=== PATIENT | male | born 1960 | race Caucasian/White ===

== ENCOUNTER 2019-02-08 06:12 | Day surgery (SDC) | payer OTHER ==
[~2019-02-08] VITALS: Ht 188 cm; Wt 102.0 kg
[2019-02-08 06:28] VITALS: BP 151/100; PULSE 68; TEMP 98
[2019-02-08] MEDS ORDERED: VIAGRA100 M1 PO (06:50)
[2019-02-08] MEDS ORDERED: ALDACTONE 25MG25 M1 PO (06:52)
[2019-02-08] MEDS ORDERED: OMEGA-3 1000 MG1 CAP PO (06:52)
[2019-02-08] MEDS ORDERED: COREG 25MG25 MG/TAB PO (06:55)
[2019-02-08] MEDS ORDERED: GLUCOPHAGE1000 MG PO (06:59)
[2019-02-08 07:35] VITALS: BP 117/84; PULSE 66; TEMP 97.7
--- NOTE | 2019-02-08 07:35 | NUR ---
Patient brought back to bay [facility]. Alert and oriented, ambulated to chair without difficulty. Vital signs stable. States he would like a apple juice and apple sauce tolerating well. Denies pain or nausea at this time. Mala at bedside. Call ramos within reach, will continue to monitor.
[2019-02-08 07:50] VITALS: BP 109/84; PULSE 60
[2019-02-08 08:05] VITALS: BP 122/88; PULSE 60
--- NOTE | 2019-02-08 08:05 | NUR ---
Discharge instructions reviewed with patient and . All questions answered. Vital signs stable. Patient states he would like to go home at this time. IV removed per orders, tolerated. Patient to get dressed at this time.
--- NOTE | 2019-02-08 08:15 | NUR ---
Patient brought down to lobby via wheel chair. To be driven home by Mala.
== END 2019-02-08 08:29 | disposition home or self-care (01) ==
LOC: SDCO 06:12
DX: Z12.11 Encounter for screening for malignant neoplasm of colon (principal); K64.1 Second degree hemorrhoids; I42.0 Dilated cardiomyopathy; D69.49 Other primary thrombocytopenia; R00.1 Bradycardia, unspecified; Z79.899 Other long term (current) drug therapy; Z95.810 Presence of automatic (implantable) cardiac defibrillator; Z88.5 Allergy status to narcotic agent; G47.33 Obstructive sleep apnea (adult) (pediatric); I10 Essential (primary) hypertension; Z87.891 Personal history of nicotine dependence; Z96.9 Presence of functional implant, unspecified
CPT/HCPCS: J2704; J7030

== ENCOUNTER 2021-05-17 13:27 | Emergency (ER) | payer OTHER ==
[~2021-05-17] VITALS: Ht 188 cm; Wt 100.5 kg
[~2021-05-17 13:27] MED LIST: ALDACTONE 25MG25 M1 PO; COREG 25MG25 MG/TAB PO; GLUCOPHAGE1000 MG PO; OMEGA-3 1000 MG1 CAP PO; VIAGRA100 M1 PO
[2021-05-17 13:38] VITALS: BP 130/91; TEMP 98.9
[2021-05-17 14:22] VITALS: PULSE 83
== END 2021-05-17 14:23 | disposition left against medical advice (07) ==
LOC: COL.ER 13:27
DX: R10.2 Pelvic and perineal pain (principal)

== ENCOUNTER → 2024-03-06 | Outpatient (CLI) | payer OTHER, MEDICARE ==
[~2024-03-06] MED LIST changes: +ASPIRIN 81M81 MG/TA2 PO; +BASAGLAR K100 UNIT/1 SQ; +CEFTIN500 MG PO; +DICLOFENAC SOD2.5 ML TOP; +DOXYCYCLINE 10100 MG PO; +ENTRESTO 24 MG1 EACH PO; +JARDIANCE10 PO; +LIPITOR 40MG TA40 MG PO; +MELATIN 3 MG-11 TAB PO; +PRILOSEC 20MG20 MG PO; +THE MEDICINE S200 M2 PO; +TYLENOL 500MG500 MG PO
== END ==
LOC: COL.RAD 07:13
DX: Z01.89 Encounter for other specified special examinations (principal); K80.20 Calculus of gallbladder without cholecystitis without obstruction; K57.90 Diverticulosis of intestine, part unspecified, without perforation or abscess without bleeding; N20.0 Calculus of kidney; D69.6 Thrombocytopenia, unspecified

== ENCOUNTER 2024-04-10 07:59 | Inpatient (IN) | payer OTHER ==
[2024-04-10] VITALS (8 sets, daily range): BP systolic 95–121; BP diastolic 64–89; PULSE 93–122; TEMP 97.5–98.3
[~2024-04-10] VITALS: Ht 188 cm; Wt 95.5 kg
[2024-04-10] MEDS ORDERED: Albuterol/Ipratropium 3 MG-0.5 MG/3 ML Neb Soln IH ONE (08:30)
[2024-04-10] MEDS ORDERED: Furosemide 40 MG/4 ML VIAL IV ONE ×2 (08:30→11:00)
[2024-04-10 08:41] LABS: BASO # 0.1 K/mm3 (0.0-0.2); EOS # 0.1 K/mm3 (0.0-0.7); EOS % 2.1 % (0.0-4.0); GRAN # 3.6 K/mm3 (1.4-6.5); GRAN % 57.7 % (42.2-75.2); HEMATOCRIT 48.6 % (42.0-52.0); HEMOGLOBIN 15.5 g/dl (13.5-18.0); LYMPH # 1.9 K/mm3 (1.2-3.4); LYMPH % 30.4 % (20.0-51.0); MEAN CELL VOLUME 84 fl (80.0-100.0); MEAN CORPUSCULAR HEMOGLOBIN 27 pg (27-31); MEAN CORPUSCULAR HGB CONC 32 g/dl (33.0-37.0); MEAN PLATELET VOLUME 12.8 fl (7.4-10.4); MONO # 0.5 K/mm3 (0.1-0.6); MONO % 8.3 % (1.7-9.3); PLATELET COUNT 176 K/mm3 (130-400); RED BLOOD COUNT 5.82 M/mm3 (4.20-5.60); REDCELL DISTRIBUTION WIDTH-CV 16.7 % (11.5-14.5)
[2024-04-10 09:02] LABS: INR 1.5 (0.8-3.0); PROTHROMBIN TIME 16.4 SECONDS (9.7-12.8)
[2024-04-10 09:11] LABS: ALBUMIN 3.7 g/dL (3.4-4.8); BILIRUBIN,TOTAL 2.3 mg/dL (0.2-1.2); C-REACTIVE PROTEIN 1.43 mg/dL (0.00-0.50); CALCIUM 9.6 mg/dL (8.4-10.2); CREATININE, serum 1.82 mg/dL (0.72-1.25); POTASSIUM 4.2 mEq/L (3.5-4.5); TOTAL PROTEIN 6.9 g/dl (6.2-8.1)
[2024-04-10 09:20] LABS: TROPONIN-I 0.131 ng/mL (0.00-0.033)
[2024-04-10] MEDS ORDERED: ENTRESTO 49 MG1 EACH PO (09:51)
[2024-04-10] MEDS ORDERED: TOPROL XL 25MG25 MG PO (09:53)
[2024-04-10] MEDS ORDERED: INSPRA25 MG PO (09:53)
[2024-04-10] MEDS ORDERED: PROAIR HFA0.09 MG/AC IH (09:54)
[2024-04-10] MEDS ORDERED: ZYRTEC 10MG10 MG PO (09:54)
[2024-04-10] MEDS ORDERED: LASIX 40MG TABL40 MG PO (09:54)
--- NOTE | 2024-04-10 10:34 | NUR ---
Patient arriued to the medical unit, room 317, alert and orinted x4, with some cough while speaking. Not productive. Assessment intake completed.
[2024-04-10] MEDS ORDERED: Ondansetron 4 MG/2 ML VIAL IV PRN (11:15)
[2024-04-10] MEDS ORDERED: Polyethylene Glycol 3350 17 GM PDS PO PRN (11:15)
[2024-04-10] MEDS ORDERED: Acetaminophen 500 MG TAB PO PRN (11:15)
[2024-04-10] MEDS ORDERED: Dextrose 50% Water 25 GM/50 ML SYRINGE IV PRN (11:30)
[2024-04-10] MEDS ORDERED: Glucagon 1 MG VIAL IM PRN (11:30)
[2024-04-10] MEDS ORDERED: Dextrose (Glucose) 15 GM (4 x 3.75 GM) Chewable TABLET PACK PO PRN (11:30)
[2024-04-10] MEDS ORDERED: Albuterol 0.042% Neb Soln 1.25 MG/3 ML UD IH PRN (11:45)
[2024-04-10] MEDS ORDERED: Insulin Lispro (HumaLOG) SQ SCH (12:00)
[2024-04-10] MEDS ORDERED: Heparin 5,000 UNITS/ML 1 ML VIAL SQ SCH (16:00)
--- NOTE | 2024-04-10 16:49 | NUR ---
Patient assisted to order dinner. Resting in bed, some fresh water provided. No other needs. Call light within reach.
--- NOTE | 2024-04-10 21:00 | NUR ---
Patient came to desk requesting nurse. Primary nurse in room at this time. Patient states he would like some melatonin to help him sleep tonight. Spoke to SHAHEEN Crawford and new orders received and initiated. Primary nurse SAMARIA Burton updated. Instructed patient to mathur for any questions/concerns. Verbalizes understanding. Call light in reach. Will monitor.
[2024-04-10] MEDS ORDERED: Melatonin 3 MG TAB PO SCH (21:05)
--- NOTE | 2024-04-10 21:47 | NUR ---
PATIENT IS RESTING IN BED WATCHING TV. DENIES PAIN BUT REPORTS HE IS FEELING PRETTY ANXIOUS AND IS REQUESTING SOME MELATONIN TO HELP HIM SLEEP. REPORTS HIS SHORTNESS OF BREATH IS BETTER BUT HE IS STILL ANXIOUS. HE IS REQUESTING TO HAVE RN "CHECK IN" THROUGHOUT THE NIGHT, THIS RN GAVE REASSURANCE THAT I WOULD BE DOING REGULAR ROUNDS THROUGHOUT THE NIGHT AND WILL BE CHECKING IN ON HIM. CALL LIGHT IS WITHIN REACH. BED IS LOCKED AND IN LOW POSITION.
--- NOTE | 2024-04-10 22:45 | NUR ---
PATIENT'S RESIDENCE LEASING AGENT AT BEDSIDE
[2024-04-11] VITALS (12 sets, daily range): BP systolic 99–125; BP diastolic 58–86; PULSE 90–112; TEMP 97.6–98.2
--- NOTE | 2024-04-11 00:20 | NUR ---
Notified by primary RN, Josephine that patient has a MEWs score of 3. Evaluated by this nurse- Patient noted to have HR in the 120s. Currently is anxious and has just been up to bathroom. Patient has been tachycardic since admission and provider aware.
--- NOTE | 2024-04-11 02:57 | NUR ---
PATIENT HAS BEEN TACHYCARDIAC INTO THE 120s WITH EACH SET OF Q4HR VITALS. THIS RN READ DR. CRUZ'S ADMITTING H&P WHERE IT WAS STATED THAT THE PATIENT IS TO BE MONITORED ON TELEMETRY, HOWEVER, NO TELEMETRY ORDERS WERE IN PLACE. CONTACTED NIGHT HOSPITALIST WILLIAM ROMANO AND ASKED ABOUT PLACING PATIENT ON TELEMETRY. NEW ORDERS RECEIVED AND TELEMETRY MONITORING INITIATED.
[2024-04-11 06:40] LABS: BASO # 0.1 K/mm3 (0.0-0.2); BASO % 1.3 % (0.0-2.0); EOS # 0.1 K/mm3 (0.0-0.7); EOS % 1.8 % (0.0-4.0); GRAN # 3.8 K/mm3 (1.4-6.5); GRAN % 67.6 % (42.2-75.2); HEMATOCRIT 44.6 % (42.0-52.0); HEMOGLOBIN 14.4 g/dl (13.5-18.0); LYMPH # 1.1 K/mm3 (1.2-3.4); LYMPH % 20.5 % (20.0-51.0); MEAN CELL VOLUME 82 fl (80.0-100.0); MEAN CORPUSCULAR HEMOGLOBIN 27 pg (27-31); MEAN CORPUSCULAR HGB CONC 32 g/dl (33.0-37.0); MEAN PLATELET VOLUME 12.8 fl (7.4-10.4); MONO # 0.5 K/mm3 (0.1-0.6); MONO % 8.4 % (1.7-9.3); PLATELET COUNT 138 K/mm3 (130-400); RED BLOOD COUNT 5.41 M/mm3 (4.20-5.60); REDCELL DISTRIBUTION WIDTH-CV 15.9 % (11.5-14.5)
[2024-04-11 07:08] LABS: CALCIUM 9.4 mg/dL (8.4-10.2); CREATININE, serum 1.64 mg/dL (0.72-1.25); MAGNESIUM 1.8 mg/dL (1.6-2.6); POTASSIUM 4.5 mEq/L (3.5-4.5)
[2024-04-11] MEDS ORDERED: Cetirizine 10 MG TAB PO SCH (09:00)
--- NOTE | 2024-04-11 09:22 | NUR ---
Patient resting in bed, alert and oriented x 4, states feeling better. Coughing but nos as frequently as yesterday. His feet have less edema. Assessment completed. Tele in place. No further needs at this time. Call light within reach.
[2024-04-11] MEDS ORDERED: Furosemide 40 MG/4 ML VIAL IV SCH (11:10)
--- NOTE | 2024-04-11 11:39 | NUR ---
Call from Tele monitor stating some Vtach. Checking patient he states he has an anxiety attack. No chest pain, lightheadedness or dizziness.
--- NOTE | 2024-04-11 11:48 | NUR ---
Pt has some tachycardia, he states he feels ok right now. at bedside. Continue monitoring.
--- NOTE | 2024-04-11 13:29 | NUR ---
rattan worker met with patient to discuss discharge planning. Patient stated he lives in [place] with his , Mala, P# [phone]. Patient mentioned he and his were looking at getting a divorce and he needed a piece of paperwork notarized regarding this. SW explained they have a notary in the hospital and she would mention he had questions about getting a paper notarized but it would depend if they were available to help. Patient understood. PCP is [facility] in [place], Pharmacy is [facility]. DPOA-HC is Mala. DME is CPAP. Patient reports to be independent with ADLS. Patient reported he has been hyperventilating when he tries to lay down to sleep. SW expressed she would mention this to the patient's nurse. Patient would like to return home at time of discharge. SW notified patient's nurse of patient's concerns about hyperventilating. OSCAR notified david Balderas, whom expressed if she has time this afternoon she would come visit with patient. Discharge plan: Home
--- NOTE | 2024-04-11 17:31 | NUR ---
Call received from Tele Monitor stating that at 1724 patient had 5 run beats with HR 112. Pt States no chest pain, SOB or other symptom. He states that when he coughs his heart accelerates. Reported to Dr. Sloan, asked to continue monitoring. No further orders.
--- NOTE | 2024-04-11 21:15 | NUR ---
PATIENT RESTING IN BED WATCHING TV. DENIES PAIN AT THIS TIME. PRESENTLY STABLE ON ROOM AIR. CALL LIGHT WITHIN REACH. BED IS LOCKED AND IN LOW POSITION.
--- NOTE | 2024-04-11 22:39 | NUR ---
ASSOCIATE PATHOLOGIST CALLED TO INFORM PATIENT HAD 5 BEAT RUN OF V-TACH. PATIENT DENIES ANY PALPITATIONS, CHEST PAIN, SHORTNESS OF BREATH.
[2024-04-12] VITALS (11 sets, daily range): BP systolic 99–121; BP diastolic 56–79; PULSE 51–85; TEMP 96.6–98.3
[2024-04-12 07:52] LABS: CALCIUM 9.3 mg/dL (8.4-10.2); CREATININE, serum 1.69 mg/dL (0.72-1.25); MAGNESIUM 2.1 mg/dL (1.6-2.6); POTASSIUM 4.4 mEq/L (3.5-4.5)
[2024-04-12 07:59] LABS: BASO # 0.1 K/mm3 (0.0-0.2); BASO % 1.1 % (0.0-2.0); EOS # 0.1 K/mm3 (0.0-0.7); EOS % 1.4 % (0.0-4.0); GRAN # 3.9 K/mm3 (1.4-6.5); GRAN % 60.6 % (42.2-75.2); HEMATOCRIT 43.8 % (42.0-52.0); HEMOGLOBIN 14.5 g/dl (13.5-18.0); LYMPH # 1.8 K/mm3 (1.2-3.4); LYMPH % 27.1 % (20.0-51.0); MEAN CELL VOLUME 81 fl (80.0-100.0); MEAN CORPUSCULAR HEMOGLOBIN 27 pg (27-31); MEAN CORPUSCULAR HGB CONC 33 g/dl (33.0-37.0); MEAN PLATELET VOLUME 13.4 fl (7.4-10.4); MONO # 0.6 K/mm3 (0.1-0.6); MONO % 9.5 % (1.7-9.3); PLATELET COUNT 145 K/mm3 (130-400); RED BLOOD COUNT 5.41 M/mm3 (4.20-5.60); REDCELL DISTRIBUTION WIDTH-CV 15.8 % (11.5-14.5)
[2024-04-12] MEDS ORDERED: Furosemide 40 MG/4 ML VIAL IV SCH (09:00)
--- NOTE | 2024-04-12 20:30 | NUR ---
Initial shift assessment done- denies pain, states has a cough, continues with edema to lower extremities but much improved according to patient on RA, sats 95%. strict I&O, voiding per urinal at bedside. Tele on /,patient states he would like to shower at 2130 tonight-- will let the aide know.
[2024-04-13] VITALS (12 sets, daily range): BP systolic 90–117; BP diastolic 58–84; PULSE 75–110; TEMP 97.4–98.2
--- NOTE | 2024-04-13 00:02 | NUR ---
Tele called, pt had a 9 sec run of v-tach at 2352 did take a set of vitals - stable, pt has been sleeping, assymptomatic--Julia LUNDBERG called to inform - no new orders at this time
--- NOTE | 2024-04-13 06:41 | NUR ---
Did have 1400cc of urine out this shift, did end up getting a few hours of sleep - resting quietly now, Tele on, no more runs of v-tach noted.
--- NOTE | 2024-04-13 08:42 | NUR ---
Patient resting in bed, watching TV. States he had a good night. Assessment completed, meds given. No further needs at this time. Call light within reach.
[2024-04-13 09:04] LABS: CALCIUM 8.8 mg/dL (8.4-10.2); CREATININE, serum 1.66 mg/dL (0.72-1.25); MAGNESIUM 2.2 mg/dL (1.6-2.6)
[2024-04-13 09:16] LABS: POTASSIUM 6.1 mEq/L (3.5-4.5)
[2024-04-13] MEDS ORDERED: Furosemide 100 MG/10 ML VIAL IV ONE ×2 (09:30→16:00)
[2024-04-13 10:25] LABS: CALCIUM 9.1 mg/dL (8.4-10.2); CREATININE, serum 1.5 mg/dL (0.72-1.25); POTASSIUM 4.1 mEq/L (3.5-4.5)
[2024-04-13] MEDS ORDERED: Eplerenone 25 MG TAB PO SCH (13:11)
[2024-04-13] MEDS ORDERED: Amiodarone 200 MG TAB PO SCH (14:15)
--- NOTE | 2024-04-13 14:55 | NUR ---
PO amiodarone order in place, Dr. Sloan states no EKG needed for now. Pt asked for more information about it and would like to talk to Dr. Sloan. Printed information for medication given. notified.
--- NOTE | 2024-04-13 16:26 | NUR ---
Checking on patient since showing VTACH in monitor. Patient at the edge of the bed stating he feels dizzy and paplitations. Call placed to Dr. Sloan to report. VS 115/83 HR 108 O2 SAT 97% T97.4. Dr. Sloan will check with sander hand, Dr. Daniel, for further orders. Patient resting in bed, still with tachycardia but not dizzy. Per tele monitor event lasted 15 secs.
[2024-04-13 17:14] LABS: CALCIUM 9.4 mg/dL (8.4-10.2); CREATININE, serum 1.83 mg/dL (0.72-1.25); MAGNESIUM 2.2 mg/dL (1.6-2.6); POTASSIUM 4.5 mEq/L (3.5-4.5)
--- NOTE | 2024-04-13 21:00 | NUR ---
Initial shift assessment done- did take a nice shower tonight, tele on,, states his software configuration specialist is comimg up tonight to talk- im ok with that- pt is anxious tonight, states has some lower abd pain with coughing- Tylenol given
--- NOTE | 2024-04-13 23:00 | NUR ---
Patient states he is feeling short of breath, sitting on edge of bed, his energy conservation engineer is still in room visiting with him, VSS, 82,22, 98/78, 95% on RA, will put on o2 at 2L/nc for comfort, did call resp therapy to give treatment, lung sounds decreased in bases, o2 sats now 98% -will continue to assess.
[2024-04-14] VITALS (13 sets, daily range): BP systolic 99–137; BP diastolic 75–84; PULSE 70–87; TEMP 96.7–97.5
--- NOTE | 2024-04-14 01:00 | NUR ---
Did let Julia LUNDBERG that pt is stating he feels short of breath, sats 98-100% on the 2 L/nc, resp 20/min,, VSS, ,will continue to watch /assess patient. tele on.
--- NOTE | 2024-04-14 02:51 | NUR ---
respiratory therapy talking with patient, Vitals remains stable-o2 sat 99-100% on the 2L/nc, pt states at times he does wear a CPAP at home, I did call Julia LUNDBERG and order was given, Respiratory will bring and set up CPAP for pt - he agrees with this.
--- NOTE | 2024-04-14 06:40 | NUR ---
Did try the CPAP for the past few hours- it did come off when he turned over and that was upsetting to him, put back on the o2 at 2L/nc, will have respiratory help him with machine and how the mask fits.
[2024-04-14 07:27] LABS: CALCIUM 9.5 mg/dL (8.4-10.2); CREATININE, serum 2.22 mg/dL (0.72-1.25); MAGNESIUM 2.1 mg/dL (1.6-2.6); POTASSIUM 5.5 mEq/L (3.5-4.5)
--- NOTE | 2024-04-14 08:31 | NUR ---
Patient resting in bed, alert and oriented x 4, VSS. No episodes along the night but reports SOB. Night RN put him on 2L O2 just for comfort. Assessment completed, meds given. No further needs at this time. Call light within reach.
[2024-04-14] MEDS ORDERED: NS 500 ML IV SCH (08:45)
[2024-04-14] MEDS ORDERED: Sodium Zirconium Cyclosilicate for Oral Susp 10 GM PACKET PO ONE (08:45)
--- NOTE | 2024-04-14 13:42 | NUR ---
Call placed to Dr. Sloan to report VTach 7 beats at 1319 hrs.
--- NOTE | 2024-04-14 20:00 | NUR ---
Assessment complete. A&Ox3. Denies pain/nausea. Short of breath with activity. Sitting on bench in room. VS stable. Currently on RA. BLE edema noted +1-better than it has been. TELE reporting SR. Plan of care discussed for this shift to include strict I/O/pain control/calling for questions/concerns. ALso discussed NPO status at 0000. Verbalizes understanding. Call light in reach. Will monitor.
[2024-04-15] VITALS (22 sets, daily range): BP systolic 99–130; BP diastolic 42–85; PULSE 61–89; TEMP 97–98.6
--- NOTE | 2024-04-15 05:41 | NUR ---
Patient had an uneventful night. Denied pain/nausea. Short of breath with activity. VS stable. Tele reporting SR. BLE edema +2. Had very minimal output this shift-200mls. 22g INT to right forearm flushes without difficulty. Did have some soft BPs. Provider aware. Has remained NPO since 0000 for jefry scan. Currently reasting with eyes closed. Will monitor.
--- NOTE | 2024-04-15 06:54 | NUR ---
Bedside report given to SAMARIA Lund.
[2024-04-15 07:20] LABS: ALBUMIN 3.4 g/dL (3.4-4.8); CALCIUM 9.6 mg/dL (8.4-10.2); CREATININE, serum 2.38 mg/dL (0.72-1.25); MAGNESIUM 2.5 mg/dL (1.6-2.6); POTASSIUM 4.5 mEq/L (3.5-4.5); TOTAL PROTEIN 6.2 g/dl (6.2-8.1)
--- NOTE | 2024-04-15 07:23 | NUR ---
Bedside report received from SAMARIA Vee. Pt awake in bed with no complaints. Call light within reach.
[2024-04-15] MEDS ORDERED: NS 500 ML IV SCH (09:15)
--- NOTE | 2024-04-15 09:46 | NUR ---
Foundation Drill Operator Helper met with patient to check in and review discharge plan. Patient stated he had no questions or concerns for SW at this time. Plan is to return home at time of discharge. Discharge Plan; Home
--- NOTE | 2024-04-15 10:18 | NUR ---
Pt resting in bed upon entry to room. Shift assessment completed. VSS. NPO status in place. Pt voices complaints of being woken during day and night. This nurse provided education on why staff was coming in and out of room. Pt states that he understands. Pt denies pain at this time. INT to Rt forearm patent, flushes without complications. Telemetry in place. Pt has no request at this time. Call light within reach.
[2024-04-15] MEDS ORDERED: Digoxin 0.25 MG TAB PO SCH ×2 (10:30→21:00)
[2024-04-15] MEDS ORDERED: DOBUTamine/D5W 250 ML IV SCH ×2 (11:00→14:00)
[2024-04-15] MEDS ORDERED: Regadenoson 0.08 MG/ML 5 ML SYRINGE IV SCH (12:13)
[2024-04-15] MEDS ORDERED: Digoxin 0.25 MG TAB PO ONE (15:30)
--- NOTE | 2024-04-15 15:53 | NUR ---
When administering PO Digoxin this nurse dropped one pill. Wasted with SAMARIA Corado in drug buster. Pharmacist sara notifed. SAMARIA Corado verifed Dobutamine gtt with this nurse. VSS. IV site patent with no swelling, redness, or dressing.
--- NOTE | 2024-04-15 18:46 | NUR ---
PATIENT RESTING IN THE APPERANCE OF SLEEP LYING ON LEFT SIDE WITH TV OFF WITH NO FAMILY PRESENT WITH NO ACUTE DISTRESS NOTED. PATIENT ON ROOM AIR. NS AND DOBUTAMINE INFUSING INTO RIGHT FOREARM WITH NO COMPLICATIONS NOTED. TELEMETRY INTACT. BEDSIDE SHIFT REPORT COMPLETED WITH ISRRAEL AT THIS TIME. ALL NEEDS MET. BED IN LOW POSITION WITH WHEELS LOCKED WITH RAILS UP X3 AND CALL LIGHT WITHIN REACH.
--- NOTE | 2024-04-15 20:50 | NUR ---
PATIENT RESTING IN BED SITTING UP WITH TV ON WITH NO FAMILY PRESENT WITH NO ACUTE DISTRESS NOTED. PATIENT ON ROOM AIR. DOBUTAMINE INFUSING INTO RIGHT FOREARM WITH NO COMPLICATIONS NOTED. ASSESSMENT AND MEDICATION ADMINISTRATION COMPLETED AT THIS TIME. PATIENT TOLERATED WELL. URINAL EMPTIED OF 625 ML OF JUAN LUIS CLEAR URINE. PATIENT REQUESTED CUP OF ICE AND ICE FOR WATER PITCHER. BOTH GIVEN. ALL NEEDS MET. BED IN LOW POSITION WITH WHEELS LOCKED WITH RAILS UP X3 AND CALL LIGHT WITHIN REACH.
[2024-04-16] VITALS (12 sets, daily range): BP systolic 99–130; BP diastolic 52–87; PULSE 54–86; TEMP 97.7–98.4
[2024-04-16 06:55] LABS: CALCIUM 8.7 mg/dL (8.4-10.2); CREATININE, serum 1.53 mg/dL (0.72-1.25); MAGNESIUM 2.1 mg/dL (1.6-2.6); POTASSIUM 4.4 mEq/L (3.5-4.5)
--- NOTE | 2024-04-16 06:58 | NUR ---
Bedside report received from SAMARIA Gray. Pt resting in bed awake with no complaints. Dobutamine gtt verfied with SAMARIA Gray. IV site to Rt forearm patent with no swelling, redness, or drainage. Pt has no request at this time. Call light within reach.
--- NOTE | 2024-04-16 08:00 | NUR ---
Pt resting in bed awake upon entry to room. Shift assessment completed. VSS. Dobutamine gtt infusing into Rt forearm with no complications. IV site patent with no redness, drainage, or swelling. Pt denies pain at this time rating 0/10. Telemetry in place. Pt has no request at this time. Call light within reach.
--- NOTE | 2024-04-16 14:35 | NUR ---
Order for PICC line was placed yesterday for dobutamine infusion. [facility] was unable to place PICC line yesterday. This nurse spoke with the patients nurse ashely who initially reported patient refused the PICC line and Dr. Sloan was going to speak with him. SAMARIA Lund called me back to report the patient agreed to the PICC line. The patient had a patent peripheral IV at this time to be able to infuse the medication until PICC line could be placed. 0724 - Spoke with the patients nurse who is again SAMARIA Lund to confirm the need for the PICC line. She was not sure if the Dobutamine ws going to be continued so we will wait until mourning rounds and verify with provider. Peripheral line is patent and infusion medication without complications. Ashely will call me back wth an update. 1025 - Phone call made to Ashely for update and she reported Dr. Sylvester was going to leave the continuation of the medication and need for PICC line up to cardiology. She will contact me after they round on the patient. 1151 - SAMARIA Lund called back with update that the PICC line was no longer indicated and requested assitance with an IV. She reported that her supervisors requested a 22G IV be placed vs a 20G for better infusion. Request was repeated back and verified multiple times for placement of 22G IV placement. 1220 - 22G IV placed in R forearm with ultrasound machine with no complications.
--- NOTE | 2024-04-16 15:59 | NUR ---
Pt states he is feeling bloated and is requesting miralax. PRN Miralax provided to pt as ordered. Pt has no other request at this time. Call light within reach.
[2024-04-16] MEDS ORDERED: Furosemide 40 MG/4 ML VIAL IV ONE (16:15)
--- NOTE | 2024-04-16 18:50 | NUR ---
PATIENT RESTING IN BED WITH PASTER AT BEDSIDE WITH TV ON WITH NO ACUTE DISTRESS NOTED. PATIENT ON ROOM AIR. INT TO RIHGT UPPER FOREARM INTACT WITH NO COMPLICATIONS NOTED. PRESSURE DRESSING NOTED TO RIGHT LOWER FOEARM. BEDSIDE SHIFT REPORT COMPLETED WITH ISRRAEL. CHARGE NURSE JANET AT BEDSIDE WITH WARM COMPRESS AT THIS TIME. PATIENT TOLERATING WELL. PATIENT DENIES ANY OTHER NEEDS. BED IN LOW POSITION WITH WHEELS LOCKED WITH RAILS UP X2 AND CALL LIGHT WITHIN REACH.
--- NOTE | 2024-04-16 18:59 | NUR ---
Pt pressed call light and stated his IV site had a bump on it. This nurse assessed IV site and noted 3 to 4 finger widths extravasation to the Rt forearm. Dobumtamine gtt stopped. 20g IV discontinued with tip intact. metal patternmaker Megan notifed. Pharmacist Zaki notifed and instructed this nurse to notify hospitalist. GRADES 7 8 TUTOR Julia notifed by phone and stated she would call pharmacy. GRADES 7 8 TUTOR Julia came to bedside to assess site and instructed this nurse to notify cardiology. This nurse paged Dr. Bellamy awaiting call back. Pt stable at this time with complaints to Rt forearm with touch. Compression to Rt forearm provided and warm compress. Pt has no request at this time. Call light within reach. Bedside report given to SAMARIA Gray.
--- NOTE | 2024-04-16 20:38 | NUR ---
DR. BERGERON PAGED AGAIN. AWAITING CALL BACK.
--- NOTE | 2024-04-16 20:48 | NUR ---
PATIENT REQUESTED RIGHT LE SHITAL WRAPE BE REDONE. RIGHT LE SHITAL WRAPE UNDONE AND REWRAPPED. PATIENT TOLERATED WELL. PATIENT DENIES ANY OTHER NEEDS. BED IN LOW POSITION WITH WHEELS LOCKED WITH RAILS UP X2 AND CALL LIGHT WITHIN REACH.
--- NOTE | 2024-04-16 21:15 | NUR ---
PATIENT RESTING SITTING UP IN BED WITH TV ON WITH NO FAMILY PRESENT WITH NO ACUTE DISTRESS NOTED. PATIENT ON ROOM AIR. INT TO RIGHT UPPER FOREARM INTACT WITH NO COMPLICATIONS NOTED. TELEMETRY INTACT. ASSESSMENT AND MEDICATION ADMINISTRATION COMPLETED AT THIS TIME. PATIENT TOLERATED WELL. PATIENT REQUESTED HIS IPAD BE PLUGED IN AND WAS DONE. PATIENT REQUESTED ICE, CUP OF ICE, AND WARM BLANKET. ALL GIVEN. PATIENT URINAL EMPTIED OF 225 ML OF DARK YELLOW URINE. PATIENT DENIES ANY OTHER NEEDS AT THIS TIME. BED IN LOW POSITION WITH WHEELS LOCKED WITH RAILS UP X2 AND CALL LIGHT WITHIN REACH.
--- NOTE | 2024-04-16 21:35 | NUR ---
CHARGE NURSE GLORIA CALLED [facility]PER DUE TO NO CALL BACK FROM DR. BERGERON AFTER TWO PAGES. ORDER RECIEVED FROM LEATHA LUNDBERG TO HOLD DOBUTAMIN DRIP AT THIS TIME.
[2024-04-17] VITALS (12 sets, daily range): BP systolic 99–148; BP diastolic 66–93; PULSE 60–114; TEMP 97.7–99.1
--- NOTE | 2024-04-17 07:25 | NUR ---
Bedside report received from SAMARIA Gray. Pt resting in bed with eyes closed. Call light within reach.
[2024-04-17 08:13] LABS: CALCIUM 8.8 mg/dL (8.4-10.2); CREATININE, serum 1.38 mg/dL (0.72-1.25); POTASSIUM 4.6 mEq/L (3.5-4.5)
[2024-04-17] MEDS ORDERED: Digoxin 0.125 MG TAB PO SCH (10:00)
[2024-04-17] MEDS ORDERED: Spironolactone 25 MG TAB PO SCH (10:00)
--- NOTE | 2024-04-17 10:00 | NUR ---
TORB to discontinue dobutamine gtt per SAMARIA Linares with cardiology per Dr. Daniel.
--- NOTE | 2024-04-17 14:37 | NUR ---
pt requesting to sit in courtyard for some sun. this nurse assisted pt to courtyard and sat with pt for 20 minutes. pt brought back to room with no complications. pt has no further request at this time. call light within reach.
[2024-04-17] MEDS ORDERED: Furosemide 40 MG/4 ML VIAL IV ONE (17:45)
--- NOTE | 2024-04-17 18:45 | NUR ---
PATIENT RESTING SITTING UP IN BED WITH TV ON WITH NO FAMILY PRESENT WITH NO ACUTE DISTRESS NOTED. PATIENT ON ROOM AIR. INT TO RIGHT UPPER FOREARM INTACT WITH NO COMPLICATIONS NOTED. TELEMETRY INTACT. BEDSIDE SHIFT REPORT COMPLETED WITH ISRRAEL AT THIS TIME. PATIENT DENEIS ANY NEEDS. BED IN LOW POSITION WITH WHEELS LOCKED WITH RAILS UP X2 AND CALL LIGHT WITHIN REACH.
--- NOTE | 2024-04-17 18:58 | NUR ---
PATIENT RESTING IN BED WATCHING TV WITH NO FAMILY PRESENT WITH NO ACUTE DISTRESS NOTED. PATIENT ON ROOM AIR. TELEMETRY INTACT. INT TO RIGHT UPPER FOREARM INTACT WITH NO COMPLICATIONS NOTED. ASSESSMENT COMPLETED AT THIS TIME. PATIENT TOLERATED WELL. PATIENT DENIES ANY NEEDS AT THIS TIME. DERREK N LOW POSITION WITH WHEELS LOCKED WITH RAILS UP X2 AND CALL LIGHT WITHIN REACH.
--- NOTE | 2024-04-17 21:26 | NUR ---
PATIENT RESTING IN BED SITTING UP PLAYING GAME ON IPAD WITH TV ON WITH NO FAMILY PRESENT WITH NO ACUTE DISTRESS NOTED. PATIENT ON ROOM AIR. INT TO RIGHT UPPER FOREARM INTACT WITH NO COMPLICATIONS NOTED. TELEMETRY PLACED BACK ON PATIENT AFTER HIS SHOWER. PATIENT TOLERATED WELL. MEDICATION ADMINISTRATION COMPLETED AT THIS TIME. PATIENT TOLERATED WELL. PATIENT URINAL EMPTIED OF 625 ML CLEAR YELLOW URINE. PATIENT REQUESTED LEGS BE WRAPPED AND WAS DONE. PATIENT GIVEN ICE AND WATER IN PITCHER WITH A CUP OF ICE PER PATIENT REQUEST. WARM BLANKET GIVEN FOR PATIENT C/O COLD FEET. PATIENT DENIES ANY OTHER NEEDS. BED IN LOW POSITION WITH WHEELS LOCKED WITH RAILS UP X2 AND CALL LIGHT WITIN REACH.
[2024-04-18] VITALS (11 sets, daily range): BP systolic 106–128; BP diastolic 63–93; PULSE 57–76; TEMP 97.5–98.6
[2024-04-18 06:31] LABS: CREATININE, serum 1.5 mg/dL (0.72-1.25); POTASSIUM 4.9 mEq/L (3.5-4.5)
--- NOTE | 2024-04-18 10:00 | NUR ---
PT LAYING IN BED UPON ENTERING. ASSESSMENT DONE, MEDS GIVEN. PT DENIES PAIN. INT TO RIGHT FOREARM PATENT. DIGOXIN MONITORING ALERTING THIS NURSE OF OUT OF RANGE LABS. PER PHARMACY DIGOXIN OKAY TO GIVE. CARDIOLOGY PAGED, HOLDING DIGOXIN AT THIS TIME. PT DENIES NEEDS. BED IN LOWEST POSITION, CALL LIGHT IN REACH.
[2024-04-18] MEDS ORDERED: WEGOVY0.5 MG/0.5 SQ (10:12)
--- NOTE | 2024-04-18 14:22 | NUR ---
PT OFFERED SHITAL WRAPS TO BILATERAL LOWER EXTREMITIES PER CARDIOLOGY AND PT ALREADY IN PROCESS OF PUTTING ON CECELIA HOSE. PT STATES HE PREFERS THEM, BILATERAL THIGH HIGH CECELIA HOSE IN PLACE
--- NOTE | 2024-04-18 19:02 | NUR ---
REPORT GIVEN TO SAMARIA LUONG
--- NOTE | 2024-04-18 23:34 | NUR ---
patient sitting in recliner, alert and oriented x4. denies chest pain and shortness of breath. independent with shower, ambulating with steady gait. back in bed, IV in RF is patent, site is CDI. BLE with +1 pitting edema, TEDs reapplied. call light within reach. pt has no further needs, questions or concerns at this time.
[2024-04-19] VITALS (13 sets, daily range): BP systolic 96–123; BP diastolic 52–90; PULSE 61–81; TEMP 97–98.5
[2024-04-19 06:58] LABS: CALCIUM 8.5 mg/dL (8.4-10.2); CREATININE, serum 1.25 mg/dL (0.72-1.25); MAGNESIUM 1.9 mg/dL (1.6-2.6); POTASSIUM 4.1 mEq/L (3.5-4.5)
[2024-04-19 07:03] LABS: BASO # 0.1 K/mm3 (0.0-0.2); BASO % 1.2 % (0.0-2.0); EOS # 0.2 K/mm3 (0.0-0.7); GRAN # 3.2 K/mm3 (1.4-6.5); GRAN % 63.2 % (42.2-75.2); HEMATOCRIT 46.3 % (42.0-52.0); LYMPH # 1.1 K/mm3 (1.2-3.4); LYMPH % 22.2 % (20.0-51.0); MEAN CELL VOLUME 83 fl (80.0-100.0); MEAN CORPUSCULAR HEMOGLOBIN 27 pg (27-31); MEAN CORPUSCULAR HGB CONC 32 g/dl (33.0-37.0); MONO # 0.5 K/mm3 (0.1-0.6); MONO % 9.6 % (1.7-9.3); REDCELL DISTRIBUTION WIDTH-CV 15.9 % (11.5-14.5)
[2024-04-19 07:23] LABS: PLATELET COUNT 99 K/mm3 (130-400)
[2024-04-19] MEDS ORDERED: Spironolactone 12.5 MG TAB PO SCH (09:00)
--- NOTE | 2024-04-19 09:20 | NUR ---
PT LAYING IN BED UPON ENTERING. ASSESSMENT DONE, MEDS GIVEN. PT DENIES PAIN. CECELIA HOSE ON. PT DENIES NEEDS. INT TO RIGHT FOREARM PATENT. BED IN LOWEST POSITION, CALL LIGHT IN REACH
--- NOTE | 2024-04-19 09:33 | NUR ---
THIS NURSE CALLED DR CHICAS AND NOTIFIED HIM OF BP 97/52 AND HEARTRATE 61. MEDS VERBALIZED AND THIS NURSE TOLD TO HOLD ALDACTONE AND METOPROLOL. HEMALATHA, CARDIOLOGY, UPDATED AND TOLD THIS NURSE TO HOLD DIGOXIN. NO NEW ORDERS AT THIS TIME.
--- NOTE | 2024-04-19 10:30 | NUR ---
CARDIOLOGY CALLED THIS NURSE AND OKAY WITH PT GETTING DIGOXIN, ALDACTONE AND METOPROLOL
--- NOTE | 2024-04-19 12:02 | NUR ---
THIS NURSE CALLED LAB TO CONFIRM FLU PCR AND COVID PCR TUBES AND WAS TOLD A DRY SWAB IN BLUE CAPPED TUBES. SPECIMENS COLLECTED AND SHORTLY AFTER THIS NURSE CALLED AND NOTIFIED THAT TUBES WERE INCORRECT AND SHOULDVE BEEN RED TUBE WITH FLUID FOR PCRS. THIS NURSE NURSE TOLD THAT [facility] TESTS MATCHED THE TUBES AND THAT ORDER COULD BE CHANGED TO MATCH. THIS NURSE CALLED PA TO VERIFY THIS WOULD BE OKAY WITH NO ANSWER. LAB CALLED BACK AND NOTIFIED THIS NURSE THAT LAB WOULD BE CHANGED TO [facility].
[2024-04-19] MEDS ORDERED: ALDACTONE 25MG25 M1 PO (16:30)
[2024-04-19] MEDS ORDERED: LANOXIN 0.120.125 MG PO (16:30)
[2024-04-19] MEDS ORDERED: CORDARONE200 MG/TAB PO (16:31)
[2024-04-19] MEDS ORDERED: LASIX 40MG TABL40 MG PO ×2 (16:32→16:38)
[2024-04-19] MEDS ORDERED: Furosemide 40 MG/4 ML VIAL IV ONE (17:00)
--- NOTE | 2024-04-19 19:28 | NUR ---
REPORT GIVEN TO SAMARIA LUONG
[2024-04-20] VITALS (9 sets, daily range): BP systolic 96–133; BP diastolic 74–88; PULSE 59–62; TEMP 98.3–98.7
--- NOTE | 2024-04-20 00:14 | NUR ---
patient lying in bed, alert and oriented x4. denies chest pain and shortness of breath. IV in RF is patent, site CDI. BLE +1 pitting edema with TEDs on noted. ambulating with steady gait, surveyor in to visit. call light within reach. pt has no further needs, questions or concerns at this time.
--- NOTE | 2024-04-20 08:00 | NUR ---
PT AWAKE AND RESTING IN CHAIR. SCHEDULED MEDS GIVEN PER eMAR. GLASSES IN PLACE. PT DENIES PAIN. PT C/O SOME SOA SINCE HE HAD BEEN UP AND IN THE SHOWER BUT THE SOA HAS IMPROVED FROM PREVIOUS DAYS. NO OTHER CONCERNS. CALL LIGHT WITHIN REACH.
[2024-04-20] MEDS ORDERED: LIPITOR20 MG PO (13:12)
--- NOTE | 2024-04-20 13:40 | NUR ---
REVIEWED DISCHARGE INSTRUCTIONS WITH PATIENT INCLUDING MEDICATIONS, EDUCATION, AND F/U APPTS. PT VERBALIZED UNDERSTANDING. PT INFORMRED THIS NURSE THAT HE WILL NOT HAVE A RIDE UNTIL AROUND 1800.
--- NOTE | 2024-04-20 16:15 | NUR ---
D/C IV SITE IN RIGHT FOREARM AND TELEMETRY. PT STATED HIS RIDE WOULD BE HERE AROUND 1700.
--- NOTE | 2024-04-20 16:57 | NUR ---
PT OFF OF UNIT AT THIS TIME VIA WHEELCHAIR
[2024-04-21] MEDS ORDERED: PRINIVIL5 MG PO (11:51)
== END 2024-04-20 16:55 | disposition home or self-care (01) | DRG 291 ==
LOC: COL.ER 07:59 → MEDICAL 08:14
PROVIDERS: Emergency Medicine; Physician Assistant; ADMIT Internal Medicine
DX: I13.0 Hypertensive heart and chronic kidney disease with heart failure and stage 1 through stage 4 chronic kidney disease, or unspecified chronic kidney disease (principal); J96.01 Acute respiratory failure with hypoxia; N17.9 Acute kidney failure, unspecified; I47.10 Supraventricular tachycardia, unspecified; I50.9 Heart failure, unspecified; N18.9 Chronic kidney disease, unspecified; E87.5 Hyperkalemia; E11.9 Type 2 diabetes mellitus without complications; Z79.4 Long term (current) use of insulin; K21.9 Gastro-esophageal reflux disease without esophagitis; J30.2 Other seasonal allergic rhinitis
CPT/HCPCS: A9270; A9500-JZ; J0282; J1250; J1644; J1815; J1940; J2785; J3475; J7040; J7060; Q3014